=== PATIENT | male | born 1980 | race American Indian/Alaskan Native ===

== ENCOUNTER 2017-09-14 18:59 | Observation (INO) | payer BC ==
[2017-09-14 19:39] LABS: Basophils % (Auto) 0.9 % (0.0-1.8); Eosinophils % (Auto) 0.5 % (0.0-4.3); Hematocrit 45.9 % (35.5-45.6); Hemoglobin 15.2 gm/dl (11.8-15.2); Mean Corpuscular HGB Conc 33 % (32-34); Mean Corpuscular Hemoglobin 28 pg (28-32); Mean Corpuscular Volume 84 fl (84-94); Platelet Count 283 K/mm3 (140-440); Red Blood Count 5.47 M/mm3 (3.65-5.03); Red Cell Distribution Width 14.2 % (13.2-15.2); White Blood Count 8.3 K/mm3 (4.5-11.0)
[2017-09-14 20:01] LABS: Anion Gap 17 mmol/L; BUN/Creatinine Ratio 18; Blood Urea Nitrogen 16 mg/dL (9-20); Calcium 9.6 mg/dL (8.4-10.2); Carbon Dioxide 29 mmol/L (22-30); Chloride 102.4 mmol/L (98-107); Glucose 92 mg/dL (75-100); Potassium 4.7 mmol/L (3.6-5.0); Sodium 144 mmol/L (137-145)
--- NOTE | 2017-09-14 21:34 | XRay Report ---
FINAL REPORT EXAM: XR CHEST ROUTINE 2V HISTORY: chest pain TECHNIQUE: PA and lateral views of the chest. PRIORS: None FINDINGS: The lungs and pleural spaces are clear. No focal consolidation, pleural effusion or pneumothorax is identified. The mediastinum and king are normal. The aorta is normal. The heart is normal in size. The osseous structures are intact.. IMPRESSION: No evidence of acute cardiopulmonary disease.
[2017-09-15] MEDS ORDERED: NITRO-BID 2% TP ONE (07:14)
[2017-09-15] MEDS ORDERED: ASPIRIN PO ONE (07:14)
[2017-09-15] MEDS ORDERED: MORPHINE IV PRN ×2 (07:14→09:08)
[2017-09-15] MEDS ORDERED: ZOFRAN IV PRN ×2 (07:14→09:08)
--- NOTE | 2017-09-15 07:19 | Emergency Department Report ---
HPI - General Chief Complaint: Chest Pain Time Seen by Provider: 09/15/17 07:05 - HPI HPI: Room 2 The patient is a 37-year-old male presenting with acute chest pain. The patient states for the past 3 months she's had intermittent left chest pain sometimes associated with diaphoresis. Patient has noticed shortness of breath when he exerts himself. Patient denies nausea/vomiting. Patient describes her chest pain is pinching in nature and intermittent. The patient states she's never had a stress test or cardiac catheterization Location: Left chest Duration: Intermittent 3 months Quality: Pinching Severity: Currently 0/10 Modifying factors: [see above] Context: [see above] Mode of transportation: Unknown ED Past Medical Hx - Past Medical History Previous Medical History?: No - Surgical History Past Surgical History?: No - Family History Family history: no significant - Social History Smoking Status: Current Every Day Smoker (1/14 pack per day) Substance Use Type: None, Alcohol (history of heavy alcohol consumption. No alcohol 6 months), Marijuana - Medications Home Medications: Home Medications Medication Instructions Recorded Confirmed Last Taken Type Citalopram Hydrobromide [celeXA] 40 mg PO DAILY 02/25/16 03/09/16 02/24/16 History Ibuprofen [Motrin] 800 mg PO Q8HR PRN #30 tablet 02/25/16 03/09/16 Unknown Rx Mirtazapine [Remeron] 40 mg PO DAILY 02/25/16 03/09/16 02/24/16 History ED Review of Systems ROS: Stated complaint: CP Other details as noted in HPI Constitutional: diaphoresis Respiratory: shortness of breath Cardiovascular: chest pain Gastrointestinal: denies: nausea, vomiting Physical Exam - Physical Exam Vital Signs: Vital Signs 09/14/17 09/15/17 19:23 01:25 Temperature 98 F 97.5 F L Pulse Rate 94 H 67 Respiratory 16 18 Rate Blood Pressure 128/83 126/83 O2 Sat by Pulse 95 98 Oximetry Physical Exam: GENERAL: The patient is well-developed well-nourished male lying on stretcher not appearing to be in acute distress. [] HEENT: Normocephalic. Atraumatic. Extraocular motions are intact. Patient has moist mucous membranes. NECK: Supple. Trachea midline CHEST/LUNGS: Clear to auscultation. There is no respiratory distress noted. HEART/CARDIOVASCULAR: Regular. There is no tachycardia. There is no gallop rub or murmur. ABDOMEN: Abdomen is soft, nontender. Patient has normal bowel sounds. There is no abdominal distention. SKIN: There is no rash. There is no edema. There is no diaphoresis. NEURO: The patient is awake, alert, and oriented. The patient is cooperative. The patient has normal speech MUSCULOSKELETAL: There is no evidence of acute injury. ED Course Vital Signs 09/14/17 09/15/17 19:23 01:25 Temperature 98 F 97.5 F L Pulse Rate 94 H 67 Respiratory 16 18 Rate Blood Pressure 128/83 126/83 O2 Sat by Pulse 95 98 Oximetry ED Medical Decision Making - Lab Data Result diagrams: 09/14/17 19:30 09/14/17 19:30 Laboratory Tests 09/14/17 09/14/17 09/14/17 19:30 19:30 22:42 WBC 8.3 RBC 5.47 H Hgb 15.2 Hct 45.9 H MCV 84 MCH 28 MCHC 33 RDW 14.2 Plt Count 283 Lymph % (Auto) 35.1 H Perry % (Auto) 4.7 Eos % (Auto) 0.5 Baso % (Auto) 0.9 Lymph # 2.9 Perry # 0.4 Eos # 0.0 Baso # 0.1 Seg Neutrophils % 58.8 Seg Neutrophils # 4.9 Sodium 144 Potassium 4.7 Chloride 102.4 Carbon Dioxide 29 Anion Gap 17 BUN 16 Creatinine 0.9 Estimated GFR > 60 BUN/Creatinine Ratio 18 Glucose 92 Calcium 9.6 Troponin T < 0.010 < 0.010 09/15/17 01:28 WBC RBC Hgb Hct MCV MCH MCHC RDW Plt Count Lymph % (Auto) Perry % (Auto) Eos % (Auto) Baso % (Auto) Lymph # Perry # Eos # Baso # Seg Neutrophils % Seg Neutrophils # Sodium Potassium Chloride Carbon Dioxide Anion Gap BUN Creatinine Estimated GFR BUN/Creatinine Ratio Glucose Calcium Troponin T < 0.010 - EKG Data -: EKG Interpreted by Me EKG shows normal: sinus rhythm Rate: normal - EKG Data When compared to previous EKG there are: previous EKG unavailable Interpretation: nonspecific ST-T wave saira (T wave inversion lead 3. Flattened T -wave in lead aVF) - Radiology Data Radiology results: image reviewed (chest x-ray) interpreted by : Chest x-ray-no focal infiltrates, no pneumothorax - Differential Diagnosis ACS, pericarditis, GERD Critical care attestation.: If time is entered above; I have spent that time in minutes in the direct care of this critically ill patient, excluding procedure time. ED Disposition Clinical Impression: Chest pain Disposition: 09 OP ADMIT IP TO THIS HOSP Is pt being admited?: Yes Does the pt Need Aspirin: Yes Condition: Fair Instructions: Chest Pain (ED) Referrals: CHASTITY KATZ MD [Primary Care Provider] - 3-5 Days Time of Disposition: 07:20 (hospitalist paged)
[2017-09-15] MEDS ORDERED: DULCOLAX PR PRN (09:08)
[2017-09-15] MEDS ORDERED: PERCOCET 5/325 PO PRN (09:08)
[2017-09-15] MEDS ORDERED: MILK OF MAGNESIA PO PRN (09:08)
[2017-09-15] MEDS ORDERED: SODIUM CHLORIDE FLUSH SYRINGE 10 ML IV PRN (09:08)
[2017-09-15] MEDS ORDERED: TYLENOL PO PRN (09:08)
--- NOTE | 2017-09-15 09:08 | History and Physical Report ---
History of Present Illness Chief complaint: Chest pain History of present illness: 37-year-old man with past medical history of major depression. Her presenting chest pain on and off for about 3 months. She states that the pain always lasts anywhere from 5-6 seconds and comes and goes without any inciting or relieving factors. He wonders if it's related to smoking cigars. Because sometimes he gets the pain an hour after smoking cigars. In the past 3 weeks he 's been having the pain more frequently, and in the last the radiated down his left arm and was associated with left arm numbness. The pain he describes as substernal sharp, 3 out of 10. He denies nausea, diaphoresis or shortness of breath. He also denies palpitations. 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[employer]) Family history: hypertension Medications and Allergies Allergies Allergy/AdvReac Type Severity Reaction Status Date / Time No Known Allergies Allergy Verified 02/25/16 00:50 Home Medications Medication Instructions Recorded Confirmed Last Taken Type Ibuprofen [Motrin 800 MG tab] 800 mg PO Q8HR PRN #30 tablet 02/25/16 03/09/16 Unknown Rx Citalopram Hydrobromide [celeXA] 40 mg PO DAILY #30 tablet 09/15/17 Unknown Rx Mirtazapine [Remeron] 40 mg PO DAILY #30 tablet 09/15/17 Unknown Rx QUEtiapine [SEROquel] 200 mg PO QHS #30 tablet 09/15/17 Unknown Rx Active Meds: Active Medications Morphine Sulfate (Morphine) 6 mg IV ONCE PRN PRN Reason: Pain Ondansetron HCl (Zofran) 8 mg IV ONCE PRN PRN Reason: Nausea Review of Systems All systems: negative (chest pain, 14 system review is otherwise negative) Exam - Constitutional Vitals: Temp Pulse Resp BP Pulse Ox 97.5 F L 67 18 126/83 98 09/15/17 01:25 09/15/17 01:25 09/15/17 01:25 09/15/17 01:25 09/15/17 01:25 General appearance: Present: no acute distress, well-nourished - EENT Eyes: Present: PERRL ENT: hearing intact, clear oral mucosa - Neck Neck: Present: supple, normal ROM - Respiratory Respiratory effort: normal Respiratory: bilateral: CTA - Cardiovascular Heart Sounds: Present: S1 & S2. Absent: rub, click - Extremities Extremities: pulses symmetrical, No edema Peripheral Pulses: within normal limits - Abdominal General gastrointestinal: Present: soft, non-tender, non-distended, normal bowel sounds Male genitourinary: Present: normal - Integumentary Integumentary: Present: clear, warm, dry - Musculoskeletal Musculoskeletal: gait normal, strength equal bilaterally - Psychiatric Psychiatric: appropriate mood/affect, intact judgment & insight - Neurologic Neurologic: CNII-XII intact, moves all extremities Results - Labs CBC & Chem 7: 09/14/17 19:30 09/14/17 19:30 Labs: Laboratory Last Values WBC 8.3 K/mm3 (4.5-11.0) 09/14/17 19:30 RBC 5.47 M/mm3 (3.65-5.03) H 09/14/17 19:30 Hgb 15.2 gm/dl (11.8-15.2) 09/14/17 19:30 Hct 45.9 % (35.5-45.6) H 09/14/17 19:30 MCV 84 fl (84-94) 09/14/17 19:30 MCH 28 pg (28-32) 09/14/17 19:30 MCHC 33 % (32-34) 09/14/17 19:30 RDW 14.2 % (13.2-15.2) 09/14/17 19:30 Plt Count 283 K/mm3 (140-440) 09/14/17 19:30 Lymph % (Auto) 35.1 % (13.4-35.0) H 09/14/17 19:30 Brooks % (Auto) 4.7 % (0.0-7.3) 09/14/17 19:30 Eos % (Auto) 0.5 % (0.0-4.3) 09/14/17 19:30 Baso % (Auto) 0.9 % (0.0-1.8) 09/14/17 19:30 Lymph # 2.9 K/mm3 (1.2-5.4) 09/14/17 19:30 Brooks # 0.4 K/mm3 (0.0-0.8) 09/14/17 19:30 Eos # 0.0 K/mm3 (0.0-0.4) 09/14/17 19:30 Baso # 0.1 K/mm3 (0.0-0.1) 09/14/17 19:30 Seg Neutrophils % 58.8 % (40.0-70.0) 09/14/17 19:30 Seg Neutrophils # 4.9 K/mm3 (1.8-7.7) 09/14/17 19:30 Sodium 144 mmol/L (137-145) 09/14/17 19:30 Potassium 4.7 mmol/L (3.6-5.0) 09/14/17 19:30 Chloride 102.4 mmol/L (98-107) 09/14/17 19:30 Carbon Dioxide 29 mmol/L (22-30) 09/14/17 19:30 Anion Gap 17 mmol/L 09/14/17 19:30 BUN 16 mg/dL (9-20) 09/14/17 19:30 Creatinine 0.9 mg/dL (0.8-1.5) 09/14/17 19:30 Estimated GFR > 60 ml/min 09/14/17 19:30 BUN/Creatinine Ratio 18 % 09/14/17 19:30 Glucose 92 mg/dL (75-100) 09/14/17 19:30 Calcium 9.6 mg/dL (8.4-10.2) 09/14/17 19:30 Troponin T < 0.010 ng/mL (0.00-0.029) 09/15/17 01:28 - Imaging and Cardiology Chest x-ray: image reviewed (no acute process) Assessment and Plan Assessment and plan: 37M w/ no cardiac hx who pw chest pain PMh: depression on meds Chest pain Was likely due to costochondritis. Serial troponins are negative, the ACS has been ruled out. We'll also obtain a stress test Depression Continue his home antidepressants If stress test is negative patient may be discharged home
[2017-09-15] MEDS ORDERED: NON-FORMULARY (Citalopram Hydrobromide [Celexa] 40 MG) PO SCH (10:00)
[2017-09-15] MEDS ORDERED: MIRTAZAPINE PO SCH (10:00)
[2017-09-15 11:15] VITALS: BP 137/90
[2017-09-15] MEDS ORDERED: celeXA PO SCH (12:00)
[2017-09-15] MEDS ORDERED: MIRTAZAPINE 30 MG PO SCH (12:34)
[2017-09-15] MEDS ORDERED: REMERON PO SCH (22:00)
--- NOTE | 2017-09-15 23:03 | Treadmill Report ---
ORDERING PHYSICIAN: Dr. Angie Pedersen. INDICATION: Chest pain. After obtaining written consent, the patient underwent a Jay protocol treadmill stress testing. The patient exercised for a total of 10 minutes and 7 seconds, reaching stage 4 on the Jay protocol. Maximum achieved heart rate was 165 beats per minute, which corresponds to 89% of the maximum age predicted heart rate. No ischemic EKG changes were recorded. No limiting chest pain or shortness of breath were reported. IMPRESSION: Normal treadmill stress test. This is a low risk test associated with a cardiovascular mortality of less than 1% in the next 1 year. JOB# [id number] STEVE/JAMEEL
[2017-09-16] MEDS ORDERED: REMERON PO SCH ×2 (10:00)
== END 2017-09-15 18:00 | disposition home or self-care (01) ==
LOC: ED 18:59 → 3A 09-15 09:08
PROVIDERS: ADMIT Internal Medicine; ATTEND Internal Medicine
DX: R07.2 Precordial pain (principal); F32.9 Major depressive disorder, single episode, unspecified; F17.210 Nicotine dependence, cigarettes, uncomplicated
CPT/HCPCS: 36415; 71020; 80048; 84484; 85025; 93005; 93010; 93017; 99285; G0378